=== PATIENT | female | born 1960 | race Caucasian/White ===

== ENCOUNTER → 2018-02-01 | Outpatient (CLI) | payer OTHER ==
[~2018-02-01] MED LIST: CALC-886 PO; DOXY-179 PO; FOL1 PO; MES400 PO; METH7.5T2 PO; METHOTREXATE INJ; MULT-820 PO; PER PO; PRE10 PO; PRE5 PO; [UNRECOGNIZED DRUG - OTHER] PO
--- NOTE | 2018-02-02 16:11 | RADIOLOGY IMAGING REPORT ---
FACILITY: [facility] PATIENT NAME: JASMINA BAIRD : [id number] MR: [id number] V: [id number] EXAM DATE: [id number] ORDERING PHYSICIAN: ELIO GUTIERRES TECHNOLOGIST: Reyna Quiñones PROCEDURE:BILATERAL DIGITAL SCREENING MAMMOGRAM WITH CAD ASSISTED INTERPRETATION & 3D TOMOSYNTHESIS COMPARISON:Prior mammograms 01/27/16 & 01/27/17 INDICATIONS:SCREENING FINDINGS: Scattered fibroglandular tissue noted. No suspicious mass, microcalcifications or architectural distortion. No change to compared prior. DIAGNOSTIC CATEGORY 1--NEGATIVE. RECOMMENDATIONS: ROUTINE MAMMOGRAM AND CLINICAL EVALUATION. IMPRESSION: BIRADS 1: Normal Exam. Annual mammographic screening recommended. Dictated by: Julius Matos on 02/02/2018 at 8:41 Transcribed by: ALPHONSO on 02/02/2018 at 8:55 Approved by: Julius Matos on 02/02/2018 at 16:10 [facility]
== END ==
LOC: MAMO 01:47
PROVIDERS: ATTEND Family Medicine
DX: Z12.31 Encounter for screening mammogram for malignant neoplasm of breast (principal)
CPT/HCPCS: 77063; 77067

== ENCOUNTER → 2018-02-01 | Outpatient (CLI) | payer OTHER ==
--- NOTE | 2018-02-01 09:11 | RADIOLOGY IMAGING REPORT ---
[place] [facility] [place] NAME: Leila Berry : 1960 MR: [id number] V: [id number] EXAM DATE: ORDERING PHYSICIAN: DAR ISLAS TECHNOLOGIST: Location: [facility] [place] Patient: Leila Berry : 1960 Visit/Account:[id number] Date of Sevice: 02/01/2018 BONE MINERAL DENSITY HISTORY: Osteoporosis COMPARISON: DEXA examination from December 2015 FINDINGS: LUMBAR SPINE: Bone mineral density (BMD) measured from L1-L4 correlates with a Z-score of -2.7 and a T-score of -3. 7 which is osteoporosis as defined by the World Health Organization. The corresponding risk of fract ure in the lumbar spine is 12-16 times compared with a young adult reference population. This value has increased by 0.8% since the prior study. More than 5% change is considered significant. HIP: Bone mineral density (BMD) measured in the left total hip region correlates with a Z-score of -1.7 an d a T-score of -2.5 which is osteoporosis as defined by the World Health Organization. The correspon ding risk of fracture in the hip is 6 times compared with a young adult reference population. This v alue has decreased by 4.6% since the prior study. More than 5% change is considered significant. Bone mineral density (BMD) measured in the left Femoral Neck region measures 0.667 g/cm2. T score is -2.7, osteoporosis. This value has decreased by 2.4% as compared to prior study IMPRESSION: 1. Lumbar spine: Osteoporosis. There has been no significant change in the bone mineral density si nce the previous exam. 2. Left Total Hip: Osteoporosis. There has been no significant change in the bone mineral density since the previous exam. 3. Left Femoral Neck: Bone Mineral Density is 0.667 g/cm2. Osteoporosis.There has been no signific ant change in the bone mineral density since the previous exam. The next DEXA scan of this patient should include the following sites: L1-L4 and left hip. FRAX? WHO Fracture Risk Assessment Tool link: <http://www.shef.ac.uk/FRAX/tool.jsp?locationValue=9> PLEASE NOTE: 1) The World Health Organization defines low BMD as follows: T-score Normal > -1 Osteopenia < -1 and > -2.5 Osteoporosis < -2.5 without fractures Established osteoporosis < -2.5 with fractures 2) In general, you may wish to consider: Diagnosis Treatment Follow-up DEXA Normal BMD Prevention 2-3 years Osteopenia Prevention/therapy 1-2 years Osteoporosis Therapy Yearly 3) Fracture risk estimated from the T-score is more accurate for vertebral fractures (often spontane ous) than for hip fractures. Report Dictated By: Waqar Red MD at 02/01/2018 9:01 AM Report E-Signed By: Waqar Red MD at 02/01/2018 9:06 AM TINYN:STEFF
== END ==
LOC: RAD 01:47
PROVIDERS: ATTEND Internal Medicine Rheumatology
DX: Z13.820 Encounter for screening for osteoporosis (principal); M85.89 Other specified disorders of bone density and structure, multiple sites
CPT/HCPCS: 77080

== ENCOUNTER → 2019-03-01 | Outpatient (CLI) | payer OTHER ==
--- NOTE | 2019-03-01 13:39 | RADIOLOGY IMAGING REPORT ---
FACILITY: [facility] PATIENT NAME: Leila Berry : 1960 MR: [id number] V: [id number] EXAM DATE: ORDERING PHYSICIAN: ELIO GUTIERRES TECHNOLOGIST: Location: [facility] Patient: Leila Berry : 1960 Visit/Account:[id number] Date of Sevice: 03/01/2019 DEXA Scan Clinical history: Postmenopausal osteoporosis. Comparison: DEXA scan from 02/01/2018. LUMBAR SPINE: The bone mineral density (BMD) measured from L1-L4 correlates with a Z-score of -2.6 and a T-score of -3.8 which is osteoporosis as defined by the World Health Organization. The corresponding risk of f racture in the lumbar spine is 12-16 times increased compared with a young adult reference population . This value has decrease by two % since the prior study. More than 5% change is considered signifi cant. HIP: Bone mineral density (BMD) measured in the LEFT total hip region correlates with a Z-score x1.6 and a T-score of -2.6 which is osteoporosis as defined by the World Health Organization. The correspondin g risk of fracture in the hip is 68 times increased compared to a young adult reference population. T his value has increased by 1.7 % since the prior study. More than 5% change is considered significan t. T score left femoral neck -2.8 Bone mineral density (BMD) measured in the Femoral Neck region measures 0.648 g/cm?. IMPRESSION: 1. Lumbar spine: Osteoporosis. There has been 2% decrease in the bone mineral density since the pre vious exam. 2. Left Total Hip: To process. There has been 1.7% decrease in the bone mineral density since the p revious exam. 3. Femoral Neck: Bone Mineral Density is 0.648 g/cm? The next DEXA scan of this patient should include the following sites: L1-L4 and the left hip. FRAX? WHO Fracture Risk Assessment Tool link: <http://www.shef.ac.uk/FRAX/tool.jsp?locationValue=9> PLEASE NOTE: 1) The World Health Organization defines low BMD as follows: T-score Normal > -1 Osteopenia < -1 and > -2.5 Osteoporosis < -2.5 without fractures Established osteoporosis < -2.5 with fractures 2) In general, you may wish to consider: Diagnosis Treatment Follow-up DEXA Normal BMD Prevention 2-3 years Osteopenia Prevention/therapy 1-2 years Osteoporosis Therapy Yearly 3) Fracture risk estimated from the T-score is more accurate for vertebral fractures (often spontane ous) than for hip fractures. Report Dictated By: Meghan Moeller MD at 03/01/2019 1:32 PM Report E-Signed By: Meghan Moeller MD at 03/01/2019 1:35 PM WSN:[id number]
--- NOTE | 2019-03-02 08:19 | RADIOLOGY IMAGING REPORT ---
FACILITY: [facility] PATIENT NAME: JASMINA BAIRD : [id number] MR: [id number] V: [id number] EXAM DATE: [id number] ORDERING PHYSICIAN: ELIO GUTIERRES TECHNOLOGIST: Reyna Quiñones PROCEDURE:BILATERAL DIGITAL SCREENING MAMMOGRAM WITH CAD ASSISTED INTERPRETATION & 3D TOMOSYNTHESIS COMPARISON:Prior mammograms 02/01/18, 01/27/17, 01/27/16, 01/16/15, 01/03/14, 12/26/12. INDICATIONS:SCREENING FINDINGS: There are scattered areas of fibroglandular density throughout the breasts. The parenchymal pattern has remained stable allowing for difference in mammographic technique & patient positioning. DIAGNOSTIC CATEGORY 1--NEGATIVE. RECOMMENDATIONS: ROUTINE MAMMOGRAM AND CLINICAL EVALUATION. IMPRESSION: BIRADS 1: Negative. No significant abnormality is seen. Dictated by: Meghan Moeller M.D. on 03/01/2019 at 15:07 Transcribed by: ALPHONSO on 03/01/2019 at 15:13 Approved by: Meghan Moeller M.D. on 03/02/2019 at 8:18 [facility]
== END ==
LOC: MAMO 01:33
PROVIDERS: ATTEND Family Medicine
DX: Z12.31 Encounter for screening mammogram for malignant neoplasm of breast (principal); M81.0 Age-related osteoporosis without current pathological fracture
CPT/HCPCS: 77063; 77067; 77080

== ENCOUNTER → 2019-03-20 | Outpatient (CLI) | payer OTHER ==
[~2019-03-20] MED LIST changes: +DENOSUMAB 60 MG/1 ML SYR SUBQ ONE
[2019-03-20 14:42] VITALS: BP 139/95
== END ==
LOC: SPU 08:27
PROVIDERS: ATTEND Physician Assistant
DX: M81.0 Age-related osteoporosis without current pathological fracture (principal)
CPT/HCPCS: 96372; J0897